=== PATIENT | male | born 1970 | race Caucasian/White ===

== ENCOUNTER 2019-04-28 06:19 | Day surgery (SDC) | payer BC, MEDICAID ==
[~2019-04-28] VITALS: Ht 177.8 cm; Wt 79.3 kg
[2019-04-28 06:40] VITALS: BP 96/57
[2019-04-28] MEDS ORDERED: COU5T PO (06:44)
[2019-04-28] MEDS ORDERED: albumin 25% 100mL bottle x 1 IV PRN (06:45)
[2019-04-28] MEDS ORDERED: normal saline 1000ml 1,000 ML IV PRN (06:45)
[2019-04-28] MEDS ORDERED: PANT40TA4 PO (06:45)
[2019-04-28] MEDS ORDERED: MIDO10TA PO (06:48)
[2019-04-28] MEDS ORDERED: ZAR5T PO (06:49)
[2019-04-28] MEDS ORDERED: ALLO100T PO (06:51)
[2019-04-28] MEDS ORDERED: SPIR50TA5 PO (06:54)
[2019-04-28] MEDS ORDERED: BUME1TAB8 PO (06:55)
[2019-04-28] MEDS ORDERED: METO25TA6 PO (06:56)
[2019-04-28 08:39] VITALS: BP 108/58
[2019-04-28 09:00] VITALS: BP 108/58
== END 2019-04-28 09:00 | disposition home or self-care (01) ==
LOC: SSTAY O 06:19
PROVIDERS: ATTEND Radiology Diagnostic Radiology
DX: R18.8 Other ascites (principal); I48.20 Chronic atrial fibrillation, unspecified; I13.0 Hypertensive heart and chronic kidney disease with heart failure and stage 1 through stage 4 chronic kidney disease, or unspecified chronic kidney disease; D63.1 Anemia in chronic kidney disease; N18.2 Chronic kidney disease, stage 2 (mild); I50.9 Heart failure, unspecified; K74.60 Unspecified cirrhosis of liver; E55.9 Vitamin D deficiency, unspecified; M10.9 Gout, unspecified; Z79.82 Long term (current) use of aspirin; Z79.01 Long term (current) use of anticoagulants; Z79.899 Other long term (current) drug therapy; Z86.73 Personal history of transient ischemic attack (TIA), and cerebral infarction without residual deficits; Z86.19 Personal history of other infectious and parasitic diseases; Z91.041 Radiographic dye allergy status
CPT/HCPCS: 36415; 76705; 85610